=== PATIENT | female | born 1965 | race Caucasian/White ===

== ENCOUNTER 2017-11-19 09:29 | Emergency (ER) | payer OTHER ==
[~2017-11-19] VITALS: Ht 167.6 cm; Wt 90.7 kg
[~2017-11-19 09:29] MED LIST: ASA5UEC PO; BACTRIM DS TAB1 EACH PO; CELEXA PO; CIPRO500 MG PO; FLEXERIL PO; HAWTHORN BERRY500 MG PO; HYDROCODON-ACE1 EAC7 PO; IMITREX100 MG PO; IRON325 PO; KLONOPIN0.5 MG PO; LOESTRIN1 EACH PO; MAGOX 400400 MG PO; METFORMIN HCL500 MG PO; NAPROSYN375 MG PO; NORVASC2.5 MG PO; PERCOCET 5-3251 EACH PO; PERCOCET PO; PHENAZOPYRIDIN200 M2 PO; POLYMYXIN B/TMP10 ML OP; PRAVACHOL20 MG PO; PRAVACHOL40 MG PO; VITAMIN B-12500 MCG PO; VITAMIN D1000 UNI1 PO; ZOCOR 20 MG TAB20 M1 PO; ZOFRAN ODT4 MG PO; ZYRTEC10 MG PO
[2017-11-19 09:53] LABS: URINE BILIRUBIN NEGATIVE (Negative); URINE BLOOD 3+ (Negative); URINE CLARITY CLEAR; URINE COLOR YELLOW; URINE GLUCOSE-RANDOM NEGATIVE (Negative); URINE KETONES NEGATIVE (Negative); URINE LEUKOCYTES-REFLEX TRACE (Negative); URINE NITRITE-REFLEX NEGATIVE (Negative); URINE PROTEIN NEGATIVE (Negative); URINE UROBILINOGEN 0.2 E.U./dl (0.2-1.0)
[2017-11-19 09:58] LABS: ABSOLUTE BASOPHILS 0.1 thou/uL (0.0-0.2); ABSOLUTE EOSINOPHILS 0.2 thou/uL (0.0-0.7); ABSOLUTE LYMPHOCYTES 2.1 thou/uL (0.8-5.3); ABSOLUTE MONOCYTES 0.5 thou/uL (0.0-1.2); ABSOLUTE NEUTROPHILS 9.1 thou/uL (1.6-8.1); BASOPHILS 0.7 %; EOSINOPHILS 1.4 %; HEMATOCRIT 46.6 % (37.0-47.0); HEMOGLOBIN 15.8 gm/dL (12.0-15.0); LYMPHOCYTES 17.5 %; MCH 28.8 pg (26.0-34.0); MCHC 33.9 g/dL (28.0-37.0); MCV 84.8 fL (80.0-100.0); MONOCYTES 3.9 %; MPV 7.5 fl. (7.2-11.1); NUCLEATED RBCS 0 /100WBC; PLATELET COUNT* 304 thou/uL (150-400); POLYS 76.5 %; RBC 5.49 mil/uL (4.20-5.00); RDW-CV 13.8 % (10.5-14.5); WBC 11.9 thou/uL (4.0-11.0)
[2017-11-19 10:03] LABS: SQUAMOUS 4-10 Moderate /LPF (0-3)
[2017-11-19 10:04] LABS: BACTERIA-REFLEX 1-9 Few /HPF (None Seen); CASTS None Seen /LPF (None Seen); CRYSTALS None Seen /LPF (None Seen); MUCUS 4-6 Moderate strn/LPF (None Seen); URINE WBC-REFLEX 6-15 Few /HPF (0-5)
[2017-11-19 10:06] LABS: CALCIUM 8.9 mg/dL (8.5-10.1); POTASSIUM 3.9 mmol/L (3.5-5.1)
[2017-11-19 10:10] LABS: ALBUMIN 3.4 g/dL (3.4-5.0); TOTAL BILIRUBIN 0.5 mg/dL (<0.1-1.0); TOTAL PROTEIN 7.3 g/dL (6.4-8.2)
[2017-11-19] MEDS ORDERED: PERCOCET 5-3251 EACH PO (10:23)
[2017-11-19] MEDS ORDERED: CIPROFLOXACIN500 M1 PO (10:23)
[2017-11-19] MEDS ORDERED: FLOMAX0.4 MG PO (10:23)
[2017-11-19 10:38] VITALS: BP 105/60
== END 2017-11-19 10:38 | disposition home or self-care (01) ==
LOC: M.ERS 09:29
PROVIDERS: Family Medicine
DX: N20.0 Calculus of kidney (principal); G43.909 Migraine, unspecified, not intractable, without status migrainosus; E78.00 Pure hypercholesterolemia, unspecified; I10 Essential (primary) hypertension; Z87.442 Personal history of urinary calculi; Z96.649 Presence of unspecified artificial hip joint; Z88.0 Allergy status to penicillin

== ENCOUNTER → 2018-11-07 | Outpatient (CLI) | payer OTHER ==
[~2018-11-07] MED LIST changes: +CIPROFLOXACIN500 M1 PO; +FLOMAX0.4 MG PO
== END ==
LOC: M.CT 12:47
DX: N20.0 Calculus of kidney (principal); K76.89 Other specified diseases of liver; Z87.442 Personal history of urinary calculi

== ENCOUNTER → 2018-11-17 | Outpatient (CLI) | payer OTHER | LOC: M.RAD 15:30 | DX: Z12.31 Encounter for screening mammogram for malignant neoplasm of breast (principal) ==

== ENCOUNTER → 2018-11-21 | Outpatient (CLI) | payer OTHER | LOC: M.ULTRA 09:52 | DX: N63.21 Unspecified lump in the left breast, upper outer quadrant (principal) ==

== ENCOUNTER → 2018-11-27 | Outpatient (CLI) | payer OTHER ==
--- NOTE | 2018-11-28 16:06 | PATH ---
[address] [address] PATHOLOGY RPT PROCEDURE Name: ARCENIO RUBY Room: [facility] KRISHNA Cash#: [id number] Admission: 11/27/18 Date of : 65 Discharge: Report #: [id number] Path Case #: [id number] [facility] Accession Number: [id number] . 01 Material submitted: . breast - LEFT BREAST, 3:00, 3CFN. Modifiers: left, 3:00 . 01 Clinical history: . 3.28 x 1.51 x 2.34 cm, 3:00, 3 cm from nipple. . 02 Diagnosis: Left breast, 3:00, 3 cm from nipple, image guided core biopsies: - Benign breast tissue with fibrosis and mild chronic inflammation, negative for atypia. See comment. (PIPPA:pit 11/28/2018) QTP/11/28/2018 . 02 Comment: Reviewed with Dr. Willam Hess who agrees with the diagnosis. (PIPPA:katia 11/28/2018) . 02 Electronically signed: . Roland Purvis MD, Pathologist NPI- [id number] . 01 Gross description: . Received in formalin labeled "Arcenio Ruby, left breast 3:00, 3 cm from nipple" is a 4.0 x 2.5 x 0.3 cm aggregate of galvan-white cylindrical soft tissue cores. The specimen is submitted entirely in cassettes A1-A3. The specimen is removed from the patient at 0931, placed in formalin at 0935, and removed from formalin at 2150 on November 27, 2018. ([facility] [place]; 11/27/2018) SY/SY . 02 Pathologist provided ICD-10: N60.32, N61.0 . 02 CPT . 069847 Specimen Comment: A courtesy copy of this report has been sent to Specimen Comment: [phone], , . Specimen Comment: Report sent to ,DR BRUNNER / DR PIERCE Performed at: [address], [place], [place] [id number] MD Tonio Bishop MD Phone: [phone] Performed at: [facility] [place] [address] [place], [place] [id number] [address] [address] PATHOLOGY RPT PROCEDURE Name: ARCENIO RUBY Room: [facility]#: [id number] Admission: 11/27/18 Date of : 65 Discharge: Report #: [id number] Path Case #: [id number] MD [facility] MD Phone: [phone]
== END | disposition home or self-care (01) ==
LOC: M.ULTRA 08:24
DX: N60.82 Other benign mammary dysplasias of left breast (principal); N61.0 Mastitis without abscess; Z88.8 Allergy status to other drugs, medicaments and biological substances; Z88.0 Allergy status to penicillin; Z87.442 Personal history of urinary calculi; Z98.890 Other specified postprocedural states; Z79.82 Long term (current) use of aspirin; Z79.899 Other long term (current) drug therapy

== ENCOUNTER → 2019-12-08 | Outpatient (CLI) | payer OTHER | LOC: M.RAD 08:52 | DX: Z12.31 Encounter for screening mammogram for malignant neoplasm of breast (principal) ==

== ENCOUNTER → 2020-07-13 | Outpatient (CLI) | payer OTHER | LOC: M.RAD 08:38 | PROVIDERS: ATTEND Nurse Practitioner Family | DX: M19.071 Primary osteoarthritis, right ankle and foot (principal); M79.89 Other specified soft tissue disorders ==

== ENCOUNTER → 2021-03-27 | Outpatient (CLI) | payer OTHER | LOC: M.RAD 03-23 14:50 | PROVIDERS: ATTEND Nurse Practitioner Family | DX: Z12.31 Encounter for screening mammogram for malignant neoplasm of breast (principal); N64.89 Other specified disorders of breast ==